=== PATIENT | female | born 1950 | race Caucasian/White ===

== ENCOUNTER → 2018-02-21 | Outpatient (CLI) | payer MEDICARE, OTHER ==
[~2018-02-21] MED LIST: ALEVE220 MG PO; ASPIR-LOW81 MG PO; ASPIRIN E.C. 8181 MG PO; BIOTIN1 MG PO; CALCIUM + D 6001 TAB PO; CARDI-OMEGA1000 MG PO; DARVOCET-N-101 UDTAB PO; FISH OIL CONC1000 MG PO; GLUCOSAMINE & C1 CA1 PO; GLUCOSAMINE/CHONDROI; LEVOXYL0.05 MG PO; MOTRIN 800800 MG/TAB PO; PRINIVIL10 MG PO; SLO NIACIN500 MG PO; SYNTHROID 0.0.025 MG PO; TRICOR145 MG PO; ZOCOR5 MG PO
== END ==
LOC: MC.RAD 02-20 14:20
DX: Z12.31 Encounter for screening mammogram for malignant neoplasm of breast (principal); N64.89 Other specified disorders of breast

== ENCOUNTER → 2018-02-24 | Outpatient (CLI) | payer MEDICARE, OTHER | LOC: MC.RAD 08:51 | DX: N64.89 Other specified disorders of breast (principal) | CPT/HCPCS: G0279 ==

== ENCOUNTER → 2018-07-10 | Outpatient (CLI) | payer MEDICARE, OTHER | LOC: COL.VAS 14:39 | DX: M79.605 Pain in left leg (principal) ==

== ENCOUNTER → 2019-04-02 | Outpatient (CLI) | payer MEDICARE, OTHER | LOC: MC.RAD 11:20 | DX: Z12.31 Encounter for screening mammogram for malignant neoplasm of breast (principal) ==

== ENCOUNTER → 2020-05-06 | Outpatient (CLI) | payer MEDICARE | LOC: MC.RAD 12:58 | DX: Z12.31 Encounter for screening mammogram for malignant neoplasm of breast (principal) ==

== ENCOUNTER → 2021-06-11 | Outpatient (CLI) | payer MEDICARE, OTHER | LOC: MC.RAD 14:05 | DX: Z12.31 Encounter for screening mammogram for malignant neoplasm of breast (principal) ==

== ENCOUNTER → 2022-07-06 | Outpatient (CLI) | payer MEDICARE, OTHER | LOC: MC.RAD 09:58 | DX: Z12.31 Encounter for screening mammogram for malignant neoplasm of breast (principal) ==

== ENCOUNTER → 2023-07-11 | Outpatient (CLI) | payer MEDICARE, OTHER | LOC: MC.RAD 07:57 | DX: Z12.31 Encounter for screening mammogram for malignant neoplasm of breast (principal) ==